=== PATIENT | female | born 1965 | race African-American/Black ===

== ENCOUNTER → 2016-08-03 | Day surgery (SDC) | payer BC ==
[~2016-08-03] MED LIST: ALBUTEROL17 GM INH; ASPIRIN81 M2 PO; BIOTIN10000 MC1 PO; COLACE PO; GABAPENTIN300 MG PO; HCTZ; KETO DHEA PO; LISINOPRIL10 MG PO; LORTAB 7.5-3251 EACH PO; MEDROL DOSEPAK4 MG; MEDROL DOSEPAK4 MG PO; MIRALAX17 GM PO; MOTRIN400 M1 PO; MULTIVITAMINS1 EAC4 PO; PERCOCET PO; ZESTORETIC 20-1 EAC1 PO; ZITHROMAX1 G/PKT PO
--- NOTE | ~2016-08-03 | OR ---
Unit #: [id number] #: [id number] Patient: THANH JAMIL [id number] [address] [address] [id number] O MR#: [id number] NAME: THANH JAMIL ROOM: Date of Procedure: 08/03/2016 Admission Date: 08/03/2016 Surgeon: Rafat Anderson M.D. : 1965 Attending Physician: Rafat Anderson M.D. Primary Care Physician: [facility]. OPERATIVE REPORT PROCEDURE PERFORMED Colonoscopy to cecum. INDICATIONS FOR PROCEDURE Average risk for colorectal cancer. MEDICATIONS Monitored anesthesia. POSTOPERATIVE FINDINGS 1. Normal exam. 2. Good prep. PLAN Repeat colonoscopy in 10 years. DESCRIPTION OF PROCEDURE The patient was explained of the procedure, risks, and benefits along with risks and benefits of anesthesia. She was brought to the endoscopy room. Propofol anesthesia was given. Rectal exam was done, which was normal. Colonoscope was lubricated, passed up the rectum, advanced under direct vision all the way to the cecum. Cecum was identified by ileocecal valve and appendiceal orifice. I then started to pull the scope out carefully looking. No polyps, masses, or colitis was seen. I retroflexed in the rectum, small hemorrhoids noted. Gently, the scope was pulled out. She tolerated it well. No major complications were seen. Dictated by... Alessia Edwards/eduardo TD: 08/04/2016 23:00 JOB #: [id number] CC: Davon Sol Aprn Unit #: [id number] #: [id number] Patient: THANH JAMIL OPERATIVE REPORT Page 1 of 1 X Rafat Anderson MD X PROCEDURE OPERATIVE NOTE
== END | disposition home or self-care (01) ==
LOC: COPS 09:49
DX: Z12.11 Encounter for screening for malignant neoplasm of colon (principal); K64.9 Unspecified hemorrhoids; I10 Essential (primary) hypertension; Z86.711 Personal history of pulmonary embolism; Z79.899 Other long term (current) drug therapy; Z90.710 Acquired absence of both cervix and uterus; Z98.890 Other specified postprocedural states
CPT/HCPCS: J2250